=== PATIENT | male | born 1935 | race Caucasian/White ===

== ENCOUNTER → 2022-11-20 | Outpatient (CLI) | payer MEDICARE, BC ==
--- NOTE | 2022-11-21 12:59 | MR ---
EXAMINATION TYPE: MR foot RT wo con DATE OF EXAM: 11/20/2022 COMPARISON: NONE HISTORY: Swelling possible osteomyelitis TECHNIQUE: Multiplanar, multisequence noncontrast imaging of the right foot is submitted. FINDINGS: There is diffuse soft tissue edema with epidermal thickening. There is a soft tissue irregularity eleuterio ng the plantar surface of the foot correlate for ulceration. There is increased signal and edema within the plantar musculature which most likely is on the basis of neuropathic joint changes. Correlate clinically. No evidence of acute fracture. Moderate to severe hypertrophic arthropathy of the first MTP. Multiple hammertoe deformities are seen with mild arthropathy of the second through fifth digit MTP. DIP joints are limited in assessment du e to positioning suspect that at least mild arthropathy of all DIP joints. Visualized tendinous structures grossly intact. The sinus tarsi has a normal appearance. IMPRESSION: 1. Extensive soft tissue edema with findings compatible cellulitis and osteomyelitis base fifth metat arsal. I correlate for adjacent soft tissue ulcerations. 2. Diffuse increased signal through the plantar musculature most likely in the basis of the neuropath ic joint. Correlate clinically to exclude other etiologies.
== END | disposition home or self-care (01) ==
LOC: RADMRIMAIN 18:53
DX: E11.621 Type 2 diabetes mellitus with foot ulcer (principal); L97.512 Non-pressure chronic ulcer of other part of right foot with fat layer exposed; M86.8X7 Other osteomyelitis, ankle and foot; R60.0 Localized edema

== ENCOUNTER 2023-03-27 12:57 | Inpatient (IN) | payer MEDICARE, BC ==
--- NOTE | 2023-03-27 13:13 | ED ---
General Adult HPI - General Chief complaint: Altered Mental Status Stated complaint: Failure to Thrive,AMS Time Seen by Provider: 03/27/23 13:00 Source: EMS Mode of arrival: EMS Limitations: altered mental status, physical limitation - History of Present Illness Initial comments: Dictation was produced using [employer] dictation software. please excuse any grammatical, word or spelling errors. Chief Complaint: 87-year-old male presents to the ER for weakness and altered mental status History of Present Illness: Patient is an 87-year-old male presents emergency department for weakness and altered mental status. EMS was called by family. According to EMS patient had appeared to be slightly altered starting last night. This morning he was even worse, called EMS. EMS states that his blood sugars and 400 range. He is currently alert and oriented 11 at baseline he is much more improved than that. Patient has history of diabetes. His history of chronic wound to his right foot. EMS does not know what patient's CODE STATUS is. Unable to obtain ROS was secondary to mental status - Related Data Home Medications Medication Instructions Recorded Confirmed Apixaban [Eliquis] 5 mg PO Q12H 12/18/22 03/27/23 Atorvastatin [Lipitor] 20 mg PO HS 12/18/22 03/27/23 Finasteride [Proscar] 5 mg PO DAILY 12/18/22 03/27/23 Multivitamins, Thera [Multivitamin 1 tab PO DAILY 12/18/22 03/27/23 (formulary)] Tamsulosin [Flomax] 0.8 mg PO HS 12/18/22 03/27/23 Vit C/E/Zn/Coppr/Lutein/Zeaxan 1 cap PO DAILY 12/18/22 03/27/23 [Preservision Areds 2 Softgel] carvediloL [Coreg] 6.25 mg PO BID 12/18/22 03/27/23 metFORMIN HCL 1,000 mg PO BID 12/18/22 03/27/23 Collagenase [Santyl Ointment] 1 applic TOPICAL DAILY 03/27/23 03/27/23 Dakin's Solution 1 applic TOPICAL DAILY 03/27/23 03/27/23 Losartan [Cozaar] 25 mg PO DAILY 03/27/23 03/27/23 Spironolactone 25 mg PO DAILY 03/27/23 03/27/23 Previous Rx's Medication Instructions Recorded Furosemide [Lasix] 60 mg PO DAILY tab 12/25/22 Allergies Allergy/AdvReac Type Severity Reaction Status Date / Time No Known Allergies Allergy Verified 03/27/23 13:58 Review of Systems ROS Statement: Those systems with pertinent positive or pertinent negative responses have been documented in the HPI. ROS Other: All systems not noted in ROS Statement are negative. Past Medical History Past Medical History: Diabetes Mellitus, Hypertension Additional Past Medical History / Comment(s): Neuropathy, macular degeneration of the eyes, Patient says they had diverticulitis but that was resolved. History of Any Multi-Drug Resistant Organisms: None Reported Past Surgical History: Cardiac Valve Replacement Additional Past Surgical History / Comment(s): Cataract surgery Past Anesthesia/Blood Transfusion Reactions: No Reported Reaction Past Psychological History: No Psychological Hx Reported Smoking Status: Former smoker Past Alcohol Use History: None Reported Past Drug Use History: None Reported - Past Family History Father Family Medical History: Hyperlipidemia General Exam - General Exam Comments Initial Comments: PHYSICAL EXAM: General Impression: Adjacent, mouth breathing HEENT: Normocephalic atraumatic, extra-ocular movements intact, pupils equal and reactive to light bilaterally, dry mucous membranes. Cardiovascular: Heart regular rate and rhythm Chest: Able to complete full sentences, no retractions, no tachypnea Abdomen: abdomen soft, non-tender, non-distended, no organomegaly Musculoskeletal: Pulses present and equal in all extremities, no peripheral edema Motor: no focal deficits noted Neurological: CN II-XII grossly intact, intact sensation to painful stimuli of the bilateral upper extremities, decreased sensation to painful stable to the bilateral lower extremities Skin: Intact with no visualized rashes, chronic wound to the right lateral foot appears to be clean dry and intact Limitations: altered mental status, physical limitation Course Vital Signs 03/27/23 03/27/23 03/27/23 12:58 13:04 13:15 Temperature 100.6 F H Pulse Rate 109 H 112 H 107 H Respiratory 22 40 H Rate Blood Pressure 98/54 98/54 O2 Sat by Pulse 97 98 98 Oximetry 03/27/23 03/27/23 13:30 13:45 Temperature Pulse Rate 98 Respiratory Rate Blood Pressure 104/57 107/59 O2 Sat by Pulse 94 L Oximetry - Reevaluation(s) Reevaluation #1: 03/27/23 14:34 More history obtained from and family members. States that he had episode of weakness yesterday morning. EMS was called and however patient adamantly refused. This morning he seemed to be very lethargic according to . Other family arrived and called EMS. Patient's states that patient's been eating chocolate more often than not as of late. They did try to give him a dose of long-acting insulin after he checked his sugar this morning when he was about 400. This was prior to EMS arrival. requested patient be full code. EKG Findings - EKG Comments: EKG Findings:: My EKG interpretation: Ventricular rate 100, normal sinus rhythm, right bundle branch block. No AR prolongation, no QTC prolongation, no ST or T- wave changes noted. EKG compared to 12/19/2022 showing no changes. Overall, this EKG is unremarkable Medical Decision Making - Medical Decision Making Was pt. sent in by a medical professional or institution (, PA, FEDERAL JUDGE, urgent care, hospital, or intermediate...) When possible be specific @ -No Did you speak to anyone other than the patient for history (EMS, parent, family, police, friend...)? What history was obtained from this source @ -No Did you review nursing and triage notes (agree or disagree)? Why? @ -I reviewed and agree with nursing and triage notes Were old charts reviewed (outside hosp., previous admission, EMS record, old EKG, old radiological studies, urgent care reports/EKG's, intermediate records)? Report findings @ -No old charts were reviewed Differential Diagnosis (chest pain, altered mental status, abdominal pain women, abdominal pain men, vaginal bleeding, musculoskeletal, weakness, fever, dyspnea, syncope, headache, dizziness, GI bleed, back pain, seizure, CVA, palpatations, mental health)? @ -Differential Weakness: Hypoglycemia, shock, sepsis, hyponatremia, anemia, infection, DE, ETOH, adverse medicine reaction, overdose, stroke, this is not meant to be an all-inclusive list. EKG interpreted by me (3pts min.). @ -See above X-rays interpreted by me (1pt min.). @ -Chest x-ray shows atelectasis to the basilar areas CT interpreted by me (1pt min.). @ -CT brain shows no acute processes. U/S interpreted by me (1pt. min.). @ -None done What testing was considered but not performed or refused? (CT, X-rays, U/S, labs)? Why? @ -None What meds were considered but not given or refused? Why? @ -None Did you discuss the management of the patient with other professionals (professionals i.e. , PA, FEDERAL JUDGE, lab, RT, psych nurse, social sciences professor, small business banking officer, teacher, president and chief executive officer, case operator)? Give summary @ -Case discussed with hospitalist for admission Was smoking cessation discussed for >3mins.? @ -No Was critical care preformed (if so, how long)? @ -No Were there social determinants of health that impacted care today? How? (Homelessness, low income, unemployed, alcoholism, drug addiction, transporta tion, low edu. Level, literacy, decrease access to med. care, long-term, rehab)? @ -No Was there de-escalation of care discussed even if they declined (Discuss DNR or withdrawal of care, Hospice)? DNR status @ -No What co-morbidities impacted this encounter? (DM, HTN, Smoking, COPD, CAD, Cancer, CVA, ARF, Chemo, Hep., AIDS, mental health diagnosis, sleep apnea, morbid obesity)? @ -Diabetes Was patient admitted / discharged? Hospital course, mention meds given and route, prescriptions, significant lab abnormalities, going to OR and other pertinent info. @ -87-year-old diabetic male presents emergency department for generalized weakness. Patient had not been complaining of any chest pain or ACS-type symptoms. Vital signs upon arrival shows 100.6 low-grade temperature, respiratory rate of 40, O2 saturation 94% on room air. Blood pressure normal. Laboratory evaluation shows no leukocytosis. Hemoglobin stable. Coag is unremarkable. Metabolic panel shows sodium 129, creatinine 2.03 BUN of 58, lactic acidosis of 4.3, troponin is elevated 10.2. Unclear etiology. EKG is unremarkable. Patient did not complain of any ACS symptoms according patient and family members at the bedside. Patient given aspirin. Troponin may be the result of infection and acute kidney injury. Clinical presentation suspicious for sepsis. Patient has pending blood cultures started on antibiotics. We'll be admitting consultation to cardiology and infectious disease. Undiagnosed new problem with uncertain prognosis? @ -No Drug Therapy requiring intensive monitoring for toxicity (Heparin, Nitro, Insulin, Cardizem)? @ -No Were any procedures done? @ -No Diagnosis/symptom? Acute, or Chronic, or Acute on Chronic? Uncomplicated (without systemic symptoms) or Complicated (systemic symptoms)? @ -Troponin, acute kidney injury, altered mental status Side effects of treatment? @ -No Exacerbation, Progression, or Severe Exacerbation? @ -No Poses a threat to life or bodily function? How? (Chest pain, USA, DE, pneumonia, PE, COPD, DKA, ARF, appy, cholecystitis, CVA, Diverticulitis, Homicidal, Suicidal, threat to staff... and all critical care pts) @ -yes - Lab Data Result diagrams: 03/27/23 13:11 03/27/23 13:11 Lab Results 03/27/23 03/27/23 03/27/23 Range/Units 13:11 13:11 13:11 WBC 9.0 (3.8-10.6) k/uL RBC 3.79 L (4.30-5.90) m/uL Hgb 10.2 L (13.0-17.5) gm/dL Hct 30.3 L (39.0-53.0) % MCV 80.2 (80.0-100.0) fL MCH 27.0 (25.0-35.0) pg MCHC 33.6 (31.0-37.0) g/dL RDW 15.6 H (11.5-15.5) % Plt Count 125 L (150-450) k/uL MPV 9.7 Neutrophils % 96 % Lymphocytes % 2 % Monocytes % 2 % Eosinophils % 0 % Basophils % 0 % Neutrophils # 8.6 H (1.3-7.7) k/uL Lymphocytes # 0.2 L (1.0-4.8) k/uL Monocytes # 0.2 (0-1.0) k/uL Eosinophils # 0.0 (0-0.7) k/uL Basophils # 0.0 (0-0.2) k/uL PT 17.4 H (10.0-12.5) sec INR 1.7 H (<1.2) APTT 29.0 (22.0-30.0) sec Sodium (137-145) mmol/L Potassium (3.5-5.1) mmol/L Chloride (98-107) mmol/L Carbon Dioxide (22-30) mmol/L Anion Gap mmol/L BUN (9-20) mg/dL Creatinine (0.66-1.25) mg/dL Est GFR (CKD-EPI)AfAm (>60 ml/min/1.73 sqM) Est GFR (CKD-EPI)NonAf (>60 ml/min/1.73 sqM) Glucose (74-99) mg/dL Plasma Lactic Acid Geraldo (0.7-2.0) mmol/L Calcium (8.4-10.2) mg/dL Magnesium (1.6-2.3) mg/dL Total Bilirubin (0.2-1.3) mg/dL AST (17-59) U/L ALT (4-49) U/L Alkaline Phosphatase (38-126) U/L Troponin I (0.000-0.034) ng/mL Total Protein (6.3-8.2) g/dL Albumin (3.5-5.0) g/dL Urine Color Urine Appearance (Clear) Urine pH (5.0-8.0) Ur Specific [place] (1.001-1.035) Urine Protein (Negative) Urine Glucose (UA) (Negative) Urine Ketones (Negative) Urine Blood (Negative) Urine Nitrite (Negative) Urine Bilirubin (Negative) Urine Urobilinogen (<2.0) mg/dL Ur Leukocyte Esterase (Negative) Urine RBC (0-5) /hpf Urine WBC (0-5) /hpf Ur Squamous Epith Cells (0-4) /hpf Urine Bacteria (None) /hpf Hyaline Casts (0-2) /lpf Urine Mucus (None) /hpf Influenza Type A (PCR) Not Detected (Not Detectd) Influenza Type B (PCR) Not Detected (Not Detectd) RSV (PCR) Not Detected (Not Detectd) SARS-CoV-2 (PCR) Not Detected (Not Detectd) 03/27/23 03/27/23 03/27/23 Range/Units 13:11 13:11 13:11 WBC (3.8-10.6) k/uL RBC (4.30-5.90) m/uL Hgb (13.0-17.5) gm/dL Hct (39.0-53.0) % MCV (80.0-100.0) fL MCH (25.0-35.0) pg MCHC (31.0-37.0) g/dL RDW (11.5-15.5) % Plt Count (150-450) k/uL MPV Neutrophils % % Lymphocytes % % Monocytes % % Eosinophils % % Basophils % % Neutrophils # (1.3-7.7) k/uL Lymphocytes # (1.0-4.8) k/uL Monocytes # (0-1.0) k/uL Eosinophils # (0-0.7) k/uL Basophils # (0-0.2) k/uL PT (10.0-12.5) sec INR (<1.2) APTT (22.0-30.0) sec Sodium 129 L (137-145) mmol/L Potassium 5.1 (3.5-5.1) mmol/L Chloride 92 L (98-107) mmol/L Carbon Dioxide 20 L (22-30) mmol/L Anion Gap 17 mmol/L BUN 58 H (9-20) mg/dL Creatinine 2.03 H (0.66-1.25) mg/dL Est GFR (CKD-EPI)AfAm 33 (>60 ml/min/1.73 sqM) Est GFR (CKD-EPI)NonAf 28 (>60 ml/min/1.73 sqM) Glucose 343 H (74-99) mg/dL Plasma Lactic Acid Geraldo 4.3 H* (0.7-2.0) mmol/L Calcium 8.5 (8.4-10.2) mg/dL Magnesium 1.3 L (1.6-2.3) mg/dL Total Bilirubin 0.7 (0.2-1.3) mg/dL AST 60 H (17-59) U/L ALT 32 (4-49) U/L Alkaline Phosphatase 76 (38-126) U/L Troponin I (0.000-0.034) ng/mL Total Protein 6.6 (6.3-8.2) g/dL Albumin 3.3 L (3.5-5.0) g/dL Urine Color Yellow Urine Appearance Cloudy (Clear) Urine pH 5.0 (5.0-8.0) Ur Specific [place] 1.019 (1.001-1.035) Urine Protein Trace H (Negative) Urine Glucose (UA) Negative (Negative) Urine Ketones Negative (Negative) Urine Blood Negative (Negative) Urine Nitrite Negative (Negative) Urine Bilirubin Negative (Negative) Urine Urobilinogen <2.0 (<2.0) mg/dL Ur Leukocyte Esterase Negative (Negative) Urine RBC 2 (0-5) /hpf Urine WBC 2 (0-5) /hpf Ur Squamous Epith Cells 2 (0-4) /hpf Urine Bacteria Rare H (None) /hpf Hyaline Casts 14 H (0-2) /lpf Urine Mucus Rare H (None) /hpf Influenza Type A (PCR) (Not Detectd) Influenza Type B (PCR) (Not Detectd) RSV (PCR) (Not Detectd) SARS-CoV-2 (PCR) (Not Detectd) 03/27/23 Range/Units 13:11 WBC (3.8-10.6) k/uL RBC (4.30-5.90) m/uL Hgb (13.0-17.5) gm/dL Hct (39.0-53.0) % MCV (80.0-100.0) fL MCH (25.0-35.0) pg MCHC (31.0-37.0) g/dL RDW (11.5-15.5) % Plt Count (150-450) k/uL MPV Neutrophils % % Lymphocytes % % Monocytes % % Eosinophils % % Basophils % % Neutrophils # (1.3-7.7) k/uL Lymphocytes # (1.0-4.8) k/uL Monocytes # (0-1.0) k/uL Eosinophils # (0-0.7) k/uL Basophils # (0-0.2) k/uL PT (10.0-12.5) sec INR (<1.2) APTT (22.0-30.0) sec Sodium (137-145) mmol/L Potassium (3.5-5.1) mmol/L Chloride (98-107) mmol/L Carbon Dioxide (22-30) mmol/L Anion Gap mmol/L BUN (9-20) mg/dL Creatinine (0.66-1.25) mg/dL Est GFR (CKD-EPI)AfAm (>60 ml/min/1.73 sqM) Est GFR (CKD-EPI)NonAf (>60 ml/min/1.73 sqM) Glucose (74-99) mg/dL Plasma Lactic Acid Geraldo (0.7-2.0) mmol/L Calcium (8.4-10.2) mg/dL Magnesium (1.6-2.3) mg/dL Total Bilirubin (0.2-1.3) mg/dL AST (17-59) U/L ALT (4-49) U/L Alkaline Phosphatase (38-126) U/L Troponin I 10.200 H* (0.000-0.034) ng/mL Total Protein (6.3-8.2) g/dL Albumin (3.5-5.0) g/dL Urine Color Urine Appearance (Clear) Urine pH (5.0-8.0) Ur Specific [place] (1.001-1.035) Urine Protein (Negative) Urine Glucose (UA) (Negative) Urine Ketones (Negative) Urine Blood (Negative) Urine Nitrite (Negative) Urine Bilirubin (Negative) Urine Urobilinogen (<2.0) mg/dL Ur Leukocyte Esterase (Negative) Urine RBC (0-5) /hpf Urine WBC (0-5) /hpf Ur Squamous Epith Cells (0-4) /hpf Urine Bacteria (None) /hpf Hyaline Casts (0-2) /lpf Urine Mucus (None) /hpf Influenza Type A (PCR) (Not Detectd) Influenza Type B (PCR) (Not Detectd) RSV (PCR) (Not Detectd) SARS-CoV-2 (PCR) (Not Detectd) Disposition Clinical Impression: SIRS (systemic inflammatory response syndrome), Elevated troponin Disposition: [facility] Condition: Serious Referrals: Jesus Shah MD [Primary Care Provider] - 1-2 days Decision Time: 15:08
[2023-03-27] MEDS ORDERED: SODIUM CHLORIDE 0.9% 500 ML 500 ML IV STA (13:25)
[2023-03-27] MEDS ORDERED: ACETAMINOPHEN TAB 500 MG TAB PO STA (13:25)
[2023-03-27 13:43] LABS: Basophils % (A) 0 %; Eosinophils % (A) 0 %; HCT 30.3 % (39.0-53.0); HGB 10.2 gm/dL (13.0-17.5); INR 1.7 (<1.2); Lymphocytes # (A) 0.2 k/uL (1.0-4.8); Lymphocytes % (A) 2 %; MCHC 33.6 g/dL (31.0-37.0); MCV 80.2 fL (80.0-100.0); Mean Platelet Volume 9.7; Monocytes # (A) 0.2 k/uL (0-1.0); Monocytes % (A) 2 %; Neutrophils # (A) 8.6 k/uL (1.3-7.7); Neutrophils % (A) 96 %; Platelet Count 125 k/uL (150-450); Prothrombin Time 17.4 sec (10.0-12.5); RBC 3.79 m/uL (4.30-5.90); RDW 15.6 % (11.5-15.5)
--- NOTE | 2023-03-27 13:55 | XR ---
EXAMINATION TYPE: XR chest 1V portable DATE OF EXAM: 03/27/2023 Comparison: 12/19/2022 Clinical History: 87-year-old male confusion, fall, altered mental status Findings: Low lung volumes and crowded vascular markings. Patchy retrocardiac and right basilar opacities. Hear t is mildly enlarged. Endovascular aortic valve replacement. Atherosclerotic arch calcifications. Impression: Prominent hypoventilatory changes. Some patchy bibasilar densities likely represent atelectasis rathe r than infiltrates.
[2023-03-27] MEDS ORDERED: ACETAMINOPHEN IV (For NPO) 1,000 MG in EMPTY BAG 1 BAG IVPB STA (13:56)
[2023-03-27 14:03] LABS: Appearance,Urine Cloudy (Clear); Bacteria,Urine Rare /hpf; Bilirubin,Urine Negative (Negative); Blood,Urine Negative (Negative); Color,Urine Yellow; Glucose,Urine (UA) Negative (Negative); Hyaline Casts,Urine 14 /lpf (0-2); Ketones,Urine Negative (Negative); Leukocyte Esterase,Urine Negative (Negative); Mucus,Urine Rare /hpf; Nitrite,Urine Negative (Negative); Protein,Urine Trace (Negative); RBC,Urine 2 /hpf (0-5); Specific Gravity,Urine 1.019 (1.001-1.035); Squamous Epithelial Cell,Urine 2 /hpf (0-4); Urobilinogen,Urine <2.0 mg/dL (<2.0); WBC,Urine 2 /hpf (0-5)
[2023-03-27 14:13] LABS: AST 60 U/L (17-59); African American GFR (CKD) 33 (>60 ml/min/1.73 sqM); Albumin 3.3 g/dL (3.5-5.0); Alkaline Phosphatase 76 U/L (38-126); Anion Gap 17 mmol/L; Blood Urea Nitrogen 58 mg/dL (9-20); Calcium 8.5 mg/dL (8.4-10.2); Carbon Dioxide 20 mmol/L (22-30); Chloride 92 mmol/L (98-107); Glucose 343 mg/dL (74-99); Magnesium 1.3 mg/dL (1.6-2.3); Non-African American GFR(CKD) 28 (>60 ml/min/1.73 sqM); Potassium 5.1 mmol/L (3.5-5.1); Sodium 129 mmol/L (137-145); Total Bilirubin 0.7 mg/dL (0.2-1.3); Total Protein 6.6 g/dL (6.3-8.2)
[2023-03-27 14:18] LABS: ALT 32 U/L (4-49)
[2023-03-27] MEDS ORDERED: HEPARIN SODIUM 1,000 UN/ML (10ML VL) IV PRN (14:38)
[2023-03-27] MEDS ORDERED: HEPARIN SODIUM 1,000 UN/ML (10ML VL) IV ONE (14:38)
[2023-03-27] MEDS ORDERED: HEPARIN SOD,PORK IN 0.45% NACL 25,000 UNIT in 0.45% NACL 1 250ML.BAG IV SCH (14:45)
--- NOTE | 2023-03-27 14:59 | CT ---
EXAMINATION TYPE: CT brain wo con DATE OF EXAM: 03/27/2023 COMPARISON: None HISTORY: AMS. Fall. CT DLP: 1152.4 mGycm Automated exposure control for dose reduction was used. FINDINGS: The ventricles, basal cisterns and sulci over the convexities are moderately to markedly enlarged con sistent with moderate to marked atrophy but not inappropriate for the patient's age. There is moderate decreased density in the periventricular white matter consistent with chronic ische eleazar white matter demyelination. There is a small remote lacunar infarct in left basal ganglia. There is no mass effect or shift of midline structures. There is no acute intra or extra-axial hemorrhage. The posterior fossa including the brainstem, fourth ventricle and cerebellar pontine angles are gross ly normal. Intraorbital contents appear normal and symmetric. The calvarium is intact and the mastoid air cells and paranasal sinuses are well aerated. IMPRESSION: 1. Chronic ischemic changes. 2. No acute bleed or mass effect. 3. Moderate to marked age-appropriate atrophy. IMPRESSION:
[2023-03-27] MEDS ORDERED: ACETAMINOPHEN TAB 325 MG TAB PO PRN (15:02)
[2023-03-27] MEDS ORDERED: NALOXONE 0.4 MG/ML 1 ML VIAL IV PRN (15:02)
[2023-03-27] MEDS ORDERED: Magnesium Replacement Protocol 1 EACH MISC MISCELLANE PRN (15:22)
[2023-03-27] MEDS ORDERED: PIPERACILLIN-TAZOBACTAM 3.375 GM in SODIUM CHLORIDE 0.9% 100 ML IVPB SCH (16:00)
[2023-03-27] MEDS: SODIUM CHLORIDE 0.9% 1,000 ML IV SCH ×2 (18:07→22:26)
[2023-03-27] MEDS: MAGNESIUM SULFATE-D5W PMX 1 GM in DEXTROSE/WATER 1 100ML.BAG IVPB SCH ×2 (18:07→19:27)
[2023-03-27] MEDS ORDERED: SODIUM CHLORIDE 0.9% 1,000 ML IV ONE (18:45)
[2023-03-27] MEDS ORDERED: ACETAMINOPHEN IV (For NPO) 1,000 MG in EMPTY BAG 1 BAG IVPB PRN (19:05)
[2023-03-27 19:32] VITALS: TEMP 99.5
[2023-03-27 20:38] VITALS: BP 55/41; PULSE 38; RESP 5
[2023-03-27] MEDS ORDERED: TAMSULOSIN 0.4 MG CAP.ER.24H PO SCH (21:00)
[2023-03-27] MEDS ORDERED: ATORVASTATIN 20 MG TAB PO SCH (21:00)
--- NOTE | 2023-03-27 21:12 | P.CNPUL ---
History of Present Illness Consult date: 03/27/23 Chief complaint: Hypotension, altered mentation, acute CT History of present illness: This is a 87-year-old male patient was seen in the emergency department for hypotension. I was asked to evaluate this patient due to a drop in blood pressure that occurred in the ED. He has a very complex history of cardiac disease. He has undergone a previous percutaneous aortic valve replacement and he has history of chronic A. fib, peripheral vascular disease, diabetes mellitus, diabetic neuropathy and a chronic ulcer in the right foot and was essentially nonhealing complicated by development of osteomyelitis and infection caused by staph aureus and enterococcus. The patient was hospitalized regarding the right foot ulcer, similar to his back in November 2022 and at that time he was evaluated by vascular surgery and infectious disease and the patient was found to have osteomyelitis of the fifth metatarsal on an MRI of the right foot. The patient underwent surgical debridement of the right lateral foot and the wound VAC was placed and ultimately was discharged home on IV antibiotics with a PICC line and he completed a total of 6 weeks of IV Unasyn. He had difficulties with mobility due to neuropathy and foot ulcer. He has hypertension hyperlipidemia and BPH as other comorbid conditions. Note of any coronary artery disease. During this current hospitalization, he comes in for generalized weakness, diarrhea, dehydration altered mentation. EMS brought the patient into the hospital for further workup. In the emergency, he was found to be alert. Confused and OA1. No focal neurological deficits. The patient was further found to be febrile with a T-max of 100.6. White cell count was at 9 with a hemoglobin of 10.2. Sodium level is 129, BUN was 58 with a creatinine of 2.03 consistent with an acute kidney injury. Blood sugars were elevated at 343. The patient had an INR of 1.7 with a PT of 17.4 and a PTT of 29. UA was negative for infection. Lactic acid level was at 4.3 and the troponins were also positive with initial troponin came back at 10.2 and a subsequent troponin came back at 18 and then 24. Cardiology was made aware and the patient was started on IV heparin. During the course of his emergency stay, he encountered hypotension. He was given a liter of IV fluids. A second liter was ordered and by the time on arrival to the emergency, the patient's blood pressure was already improving. He was not using any pressors. Most recent lactic acid level is at 6.0. He virus screen was negative including influenza, Covid 19 and RSV. Chest x-ray was reviewed and the patient has smaller lung volumes with atelectatic changes in lung bases bilaterally CAT scan of the brain showed chronic ischemic changes in the EKG was consistent with atrial fibrillation with a heart rate in the range of 100-110. The patient also had a bundle branch block pattern on his EKG. He was on room air oxygen. Very poor historian. Right lower extremity wound had a clean healthy base and Sentyl was being applied to the area. PICC line has been removed. No ongoing antibiotic treatment. Abdomen is nontender. Review of Systems Constitutional: Reports chronic pain, Reports daytime sleepiness, Reports fatigue, Reports lethargy, Reports poor appetite, Reports weakness Eyes: bilateral decreased vision, denies as per HPI, denies blurred vision, timo es bulging eye, denies diplopia, denies discharge, denies dry eye, denies irritation, denies itching, denies pain, denies photophobia, denies loss of peripheral vision, denies loss of vision, denies tunnel vision/blind spots Ears, nose, mouth and throat: Reports as per HPI Cardiovascular: Reports decreased exercise tolerance, Reports irregular heart beat, Denies dyspnea on exertion Respiratory: Reports dyspnea Gastrointestinal: Reports diarrhea Genitourinary: Reports as per HPI Musculoskeletal: Reports gait dysfunction, Reports leg numbness/tingling, Reports muscle weakness Musculoskeletal: absent: ankle pain, ankle stiffness, ankle swelling, as per HPI, elbow pain, elbow stiffness, elbow swelling, foot pain, foot stiffness, foot swelling, hand pain, hand stiffness, hand swelling, hip pain, hip stiffness, hip swelling, knee pain, knee stiffness, knee swelling, shoulder pain, shoulder stiffness, shoulder swelling, wrist pain, wrist stiffness, wrist swelling Integumentary: Reports foot/leg ulcers, Reports wounds Neurological: Reports as per HPI, Reports change in mentation, Reports confusion Psychiatric: Reports as per HPI Endocrine: Reports as per HPI, Reports fatigue Hematologic/Lymphatic: Reports as per HPI Allergic/Immunologic: Reports as per HPI Past Medical History Past Medical History: Atrial Fibrillation, Coronary Artery Disease (CAD), Heart Failure, Diabetes Mellitus, Hypertension, Musculoskeletal Disorder, Osteoarthritis (OA), Prostate Disorder, Skin Disorder (Diabetic foot ulcer, osteomyelitis of the right foot/fifth metatarsal), Vascular Disorder Additional Past Medical History / Comment(s): Neuropathy, macular degeneration of the eyes, Patient says they had diverticulitis but that was resolved. Previous history of percutaneous aortic valve replacement/TAVR History of Any Multi-Drug Resistant Organisms: None Reported Past Surgical History: Cardiac Valve Replacement (tAVR) Additional Past Surgical History / Comment(s): Cataract surgery Past Anesthesia/Blood Transfusion Reactions: No Reported Reaction Past Psychological History: No Psychological Hx Reported Smoking Status: Former smoker Past Alcohol Use History: None Reported Past Drug Use History: None Reported - Past Family History Father Family Medical History: Hyperlipidemia Medications and Allergies Home Medications Medication Instructions Recorded Confirmed Type Apixaban [Eliquis] 5 mg PO Q12H 12/18/22 03/27/23 History Atorvastatin [Lipitor] 20 mg PO HS 12/18/22 03/27/23 History Finasteride [Proscar] 5 mg PO DAILY 12/18/22 03/27/23 History Multivitamins, Thera [Multivitamin 1 tab PO DAILY 12/18/22 03/27/23 History (formulary)] Tamsulosin [Flomax] 0.8 mg PO HS 12/18/22 03/27/23 History Vit C/E/Zn/Coppr/Lutein/Zeaxan 1 cap PO DAILY 12/18/22 03/27/23 History [Preservision Areds 2 Softgel] carvediloL [Coreg] 6.25 mg PO BID 12/18/22 03/27/23 History metFORMIN HCL 1,000 mg PO BID 12/18/22 03/27/23 History Furosemide [Lasix] 60 mg PO DAILY tab 12/25/22 03/27/23 Rx Collagenase [Santyl Ointment] 1 applic TOPICAL DAILY 03/27/23 03/27/23 History Dakin's Solution 1 applic TOPICAL DAILY 03/27/23 03/27/23 History Losartan [Cozaar] 25 mg PO DAILY 03/27/23 03/27/23 History Spironolactone 25 mg PO DAILY 03/27/23 03/27/23 History Allergies Allergy/AdvReac Type Severity Reaction Status Date / Time No Known Allergies Allergy Verified 03/27/23 13:58 Physical Exam Vitals: Vital Signs Temp Pulse Resp BP Pulse Ox 03/27/23 20:35 38 L 5 L 55/41 86 L 03/27/23 20:30 74 21 104/92 91 L 03/27/23 20:25 93 26 H 104/92 93 L 03/27/23 20:20 103 H 31 H 104/92 94 L 03/27/23 20:15 102 H 35 H 116/96 95 03/27/23 20:10 106 H 33 H 116/96 95 03/27/23 20:05 121 H 37 H 116/96 94 L 03/27/23 20:00 113 H 39 H 92/65 95 03/27/23 19:40 112 H 36 H 96/57 96 03/27/23 19:00 99.5 F 104 H 39 H 98/54 95 03/27/23 18:40 86 49 H 101/47 94 L 03/27/23 18:20 106 H 39 H 106/24 94 L 03/27/23 18:00 98 47 H 97/53 97 03/27/23 17:40 96 45 H 81/50 100 03/27/23 17:20 91 48 H 115/51 100 03/27/23 17:00 106 H 42 H 72/36 99 03/27/23 16:40 100 33 H 72/46 100 03/27/23 16:20 90 34 H 95 03/27/23 16:00 102 H 33 H 109/46 89 L 03/27/23 15:40 87 44 H 76/53 03/27/23 15:20 105 H 49 H 94/60 03/27/23 15:00 120 H 37 H 90 L 03/27/23 14:40 111/54 03/27/23 14:20 100 40 H 116/70 03/27/23 14:00 116 H 115/72 95 03/27/23 13:45 98 107/59 94 L 03/27/23 13:30 104/57 03/27/23 13:15 107 H 98/54 98 03/27/23 13:04 112 H 40 H 98 03/27/23 12:58 100.6 F H 109 H 22 98/54 97 Intake and Output 03/27/23 03/27/23 03/27/23 06:59 14:59 22:59 Other: Weight 99.79 kg General: Nontoxic, no distress and appears stated age, confused, currently on room air oxygen. No apparent distress distress. Derm: Skin warm and dry, normal coloration for ethnicity. The patient has a chronic nonhealing ulcer in the lateral aspect of the right foot, the base of the foot is clean without any purulent material. No active drainage from the wound surface Head: Atraumatic, normocephalic and symmetric. Eyes: EOMs intact, no lid lag, and anicteric sclera Mouth: no lip lesions, mucus membranes are dry Cardiovascular: Irregular rhythm consistent with atrial fibrillation, irregular S1S2, systolic murmur, positive posterior tibial pulses bilaterally Lungs: Respirations even, regular, and unlabored on room air. Lungs diminished. No rhonchi, no rales, no wheezing, and no accessory muscle usage. Abdominal: Obese abdomen soft, nontender to palpation, no guarding, no appreciable organomegaly Ext: : No gross muscle atrophy, 1+ bilateral lower extremity pitting edema, no contractures. Dressing is in place to the right foot ulcer Neuro: Lethargic, sleepy, confused, alert and oriented 1, face symmetrical and CN II-XII grossly intact with no noted focal neuro deficits Psych: Unable to obtain Results - Laboratory Findings CBC and BMP: 03/27/23 13:11 03/27/23 13:11 PT/INR, D-dimer PT 17.4 sec (10.0-12.5) H 03/27/23 13:11 INR 1.7 (<1.2) H 03/27/23 13:11 Abnormal lab findings: Abnormal Labs 03/27/23 03/27/23 03/27/23 13:11 13:11 13:11 RBC 3.79 L Hgb 10.2 L Hct 30.3 L RDW 15.6 H Plt Count 125 L Neutrophils # 8.6 H Lymphocytes # 0.2 L PT 17.4 H INR 1.7 H Sodium Chloride Carbon Dioxide BUN Creatinine Glucose Plasma Lactic Acid Geraldo Ionized Calcium Yonatan Magnesium AST Troponin I Albumin Urine Protein Trace H Urine Bacteria Rare H Hyaline Casts 14 H Urine Mucus Rare H 03/27/23 03/27/23 03/27/23 13:11 13:11 13:11 RBC Hgb Hct RDW Plt Count Neutrophils # Lymphocytes # PT INR Sodium 129 L Chloride 92 L Carbon Dioxide 20 L BUN 58 H Creatinine 2.03 H Glucose 343 H Plasma Lactic Acid Geraldo 4.3 H* Ionized Calcium Yonatan Magnesium 1.3 L AST 60 H Troponin I 10.200 H* Albumin 3.3 L Urine Protein Urine Bacteria Hyaline Casts Urine Mucus 03/27/23 03/27/23 03/27/23 14:09 16:13 16:20 RBC Hgb Hct RDW Plt Count Neutrophils # Lymphocytes # PT INR Sodium Chloride Carbon Dioxide BUN Creatinine Glucose Plasma Lactic Acid Geraldo 5.8 H* Ionized Calcium Yonatan 4.4 L Magnesium AST Troponin I 18.300 H* Albumin Urine Protein Urine Bacteria Hyaline Casts Urine Mucus 03/27/23 03/27/23 19:21 19:21 RBC Hgb Hct RDW Plt Count Neutrophils # Lymphocytes # PT INR Sodium Chloride Carbon Dioxide BUN Creatinine Glucose Plasma Lactic Acid Geraldo 6.0 H* Ionized Calcium Yonatan Magnesium AST Troponin I 24.200 H* Albumin Urine Protein Urine Bacteria Hyaline Casts Urine Mucus Assessment and Plan Plan: Acute non-ST segment elevation myocardial infarction with progressive rise in the troponin, peaked at 24. The patient is free of any chest pain. EKG showing A. fib with a RBB pattern. The patient is currently on IV heparin. Acute hypotension, responded to IV fluids. Rule out intravascular volume depletion/dehydration probably due to diminished oral intake and diarrhea contributing to intravascular depletion Acute kidney injury, likely secondary to above Congestion heart failure, based on the physical ejection fraction is not known aortic valve replacement/TAVR Chronic A. 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 The patient is undergone surgical debridement and culture showed MSSA and enterococcus and the patient completed a total of 6 week course of IV Unasyn outpatient basis. The wounds is inspected and the base of the wound is clean and there is no active purulent drainage at this point. Diarrhea, rule out C. diff colitis. No active antibiotic intake and this point in time and the patient completed 6 weeks course of IV Unasyn Diabetes mellitus with diabetic neuropathy Peripheral vascular disease Hypertension Hyperlipidemia BPH Plan Patient was given a total of 2 L of IV fluids. We'll continue maintenance of 130 mL an hour normal saline Continue IV heparin Echocardiogram to evaluate LV function Cardiology to evaluate acute non-ST segment elevation myocardial infarction No need for antibiotic coverage at this point in time Check stool for C. diff Obtain blood cultures Check pro calcitonin level Oxygenation is stable and the patient is currently on room air oxygen Wound care and the patient would have the Dakin's solution in addition to santyl DNR/DNI CODE STATUS Resume all medications Prognosis poor. We'll continue to follow
--- NOTE | 2023-03-27 23:17 | P.CONS ---
History of Present Illness - Reason for Consult Consult date: 03/27/23 SIRS Requesting physician: Julien Patino - Chief Complaint Weakness and mental status changes x 1 day - History of Present Illness Patient is a 87-year-old male with a past medical history of pain for diabetes mellitus hypertension, patient did have admission to the hospital in November 2022 with the right fifth toe osteomyelitis and this patient was status post amputation of the right fifth toe culture positive for MSSA and Enterococcus faecalis for the patient has completed course of IV and oral antibiotic therapy patient currently following at [facility] for the right foot wound currently being treated with the collagen therapy patient has been brought into the hospital this afternoon for evaluation of weakness and mental status changes apparently the patient fell 1 week and did have a fall yesterday EMS came and to get the patient up however the patient refused to go to the ED ER yesterday was noticed to be more weak and less responsive for the patient was brought into the hospital on arrival to the ER patient did have a fever 100.6 degrees for right patient was tachycardic tachypneic and hypoxic patient did have elevated lactic acid of 5.8 white count is 9.0 did have elevated urinary creatinine AST is mildly elevated also have elevated troponin urine has been negative influenza RSV and COVID testing was negative patient did have a chest x-ray prominent hypoventilatory changes some patchy bibasilar densities likely present atelectasis rather than infiltrate patient was admitted to the hospital infectious disease was consulted for further management most information has been obtained from review the chart talking to the family as the patient could not provide any history Review of Systems Positive point and negatives has been mentioned in the HPI, complete review of systems was performed and all other systems are negative Past Medical History Past Medical History: Diabetes Mellitus, Hypertension Additional Past Medical History / Comment(s): Neuropathy, macular degeneration of the eyes, Patient says they had diverticulitis but that was resolved. History of Any Multi-Drug Resistant Organisms: None Reported Past Surgical History: Cardiac Valve Replacement Additional Past Surgical History / Comment(s): Cataract surgery Past Anesthesia/Blood Transfusion Reactions: No Reported Reaction Past Psychological History: No Psychological Hx Reported Smoking Status: Former smoker Past Alcohol Use History: None Reported Past Drug Use History: None Reported - Past Family History Father Family Medical History: Hyperlipidemia Medications and Allergies Home Medications Medication Instructions Recorded Confirmed Type Apixaban [Eliquis] 5 mg PO Q12H 12/18/22 03/27/23 History Atorvastatin [Lipitor] 20 mg PO HS 12/18/22 03/27/23 History Finasteride [Proscar] 5 mg PO DAILY 12/18/22 03/27/23 History Multivitamins, Thera [Multivitamin 1 tab PO DAILY 12/18/22 03/27/23 History (formulary)] Tamsulosin [Flomax] 0.8 mg PO HS 12/18/22 03/27/23 History Vit C/E/Zn/Coppr/Lutein/Zeaxan 1 cap PO DAILY 12/18/22 03/27/23 History [Preservision Areds 2 Softgel] carvediloL [Coreg] 6.25 mg PO BID 12/18/22 03/27/23 History metFORMIN HCL 1,000 mg PO BID 12/18/22 03/27/23 History Furosemide [Lasix] 60 mg PO DAILY tab 12/25/22 03/27/23 Rx Collagenase [Santyl Ointment] 1 applic TOPICAL DAILY 03/27/23 03/27/23 History Dakin's Solution 1 applic TOPICAL DAILY 03/27/23 03/27/23 History Losartan [Cozaar] 25 mg PO DAILY 03/27/23 03/27/23 History Spironolactone 25 mg PO DAILY 03/27/23 03/27/23 History Allergies Allergy/AdvReac Type Severity Reaction Status Date / Time No Known Allergies Allergy Verified 03/27/23 13:58 Physical Exam Vitals: Vital Signs Temp Pulse Resp BP Pulse Ox 03/27/23 16:40 100 33 H 72/46 100 03/27/23 16:20 90 34 H 95 03/27/23 16:00 102 H 33 H 109/46 89 L 03/27/23 15:40 87 44 H 76/53 03/27/23 15:20 105 H 49 H 94/60 03/27/23 15:00 120 H 37 H 90 L 03/27/23 14:40 111/54 03/27/23 14:20 100 40 H 116/70 03/27/23 14:00 116 H 115/72 95 03/27/23 13:45 98 107/59 94 L 03/27/23 13:30 104/57 03/27/23 13:15 107 H 98/54 98 12/28/23 13:04 112 H 40 H 98 03/27/23 12:58 100.6 F H 109 H 22 98/54 97 Intake and Output 03/27/23 03/27/23 03/27/23 06:59 14:59 22:59 Other: Weight 99.79 kg GENERAL DESCRIPTION: Elderly male lying in bed, no distress. No tachypnea or accessory muscle of respiration use. HEENT: Shows Pallor , no scleral icterus. Oral mucous membrane is dry. No pharyngeal erythema or thrush NECK: Trachea central, no thyromegaly. LUNGS: Unlabored breathing. Coarse breath sounds bilaterally HEART: S1, S2, regular rate and rhythm. ABDOMEN: Soft, no tenderness , EXTREMITIES: Right foot wound with no slough tissue no surrounding swelling redness or any drainage SKIN: No rash, no masses palpable. NEUROLOGICAL: The patient is lethargic but arousable orientation cannot be determined Results CBC & Chem 7: 03/27/23 13:11 03/27/23 13:11 Labs: Abnormal Lab Results - Last 24 Hours (Table) 03/27/23 03/27/23 03/27/23 Range/Units 13:11 13:11 13:11 RBC 3.79 L (4.30-5.90) m/uL Hgb 10.2 L (13.0-17.5) gm/dL Hct 30.3 L (39.0-53.0) % RDW 15.6 H (11.5-15.5) % Plt Count 125 L (150-450) k/uL Neutrophils # 8.6 H (1.3-7.7) k/uL Lymphocytes # 0.2 L (1.0-4.8) k/uL PT 17.4 H (10.0-12.5) sec INR 1.7 H (<1.2) Sodium (137-145) mmol/L Chloride (98-107) mmol/L Carbon Dioxide (22-30) mmol/L BUN (9-20) mg/dL Creatinine (0.66-1.25) mg/dL Glucose (74-99) mg/dL Plasma Lactic Acid Geraldo (0.7-2.0) mmol/L Ionized Calcium Yonatan (4.5-5.3) mg/dL Magnesium (1.6-2.3) mg/dL AST (17-59) U/L Troponin I (0.000-0.034) ng/mL Albumin (3.5-5.0) g/dL Urine Protein Trace H (Negative) Urine Bacteria Rare H (None) /hpf Hyaline Casts 14 H (0-2) /lpf Urine Mucus Rare H (None) /hpf 03/27/23 03/27/23 03/27/23 Range/Units 13:11 13:11 13:11 RBC (4.30-5.90) m/uL Hgb (13.0-17.5) gm/dL Hct (39.0-53.0) % RDW (11.5-15.5) % Plt Count (150-450) k/uL Neutrophils # (1.3-7.7) k/uL Lymphocytes # (1.0-4.8) k/uL PT (10.0-12.5) sec INR (<1.2) Sodium 129 L (137-145) mmol/L Chloride 92 L (98-107) mmol/L Carbon Dioxide 20 L (22-30) mmol/L BUN 58 H (9-20) mg/dL Creatinine 2.03 H (0.66-1.25) mg/dL Glucose 343 H (74-99) mg/dL Plasma Lactic Acid Geraldo 4.3 H* (0.7-2.0) mmol/L Ionized Calcium Yonatan (4.5-5.3) mg/dL Magnesium 1.3 L (1.6-2.3) mg/dL AST 60 H (17-59) U/L Troponin I 10.200 H* (0.000-0.034) ng/mL Albumin 3.3 L (3.5-5.0) g/dL Urine Protein (Negative) Urine Bacteria (None) /hpf Hyaline Casts (0-2) /lpf Urine Mucus (None) /hpf 03/27/23 03/27/23 03/27/23 Range/Units 14:09 16:13 16:20 RBC (4.30-5.90) m/uL Hgb (13.0-17.5) gm/dL Hct (39.0-53.0) % RDW (11.5-15.5) % Plt Count (150-450) k/uL Neutrophils # (1.3-7.7) k/uL Lymphocytes # (1.0-4.8) k/uL PT (10.0-12.5) sec INR (<1.2) Sodium (137-145) mmol/L Chloride (98-107) mmol/L Carbon Dioxide (22-30) mmol/L BUN (9-20) mg/dL Creatinine (0.66-1.25) mg/dL Glucose (74-99) mg/dL Plasma Lactic Acid Geraldo 5.8 H* (0.7-2.0) mmol/L Ionized Calcium Yonatan 4.4 L (4.5-5.3) mg/dL Magnesium (1.6-2.3) mg/dL AST (17-59) U/L Troponin I 18.300 H* (0.000-0.034) ng/mL Albumin (3.5-5.0) g/dL Urine Protein (Negative) Urine Bacteria (None) /hpf Hyaline Casts (0-2) /lpf Urine Mucus (None) /hpf Assessment and Plan (1) SIRS (systemic inflammatory response syndrome) Status: Acute Code(s): R65.10 - SIRS OF NON-INFECTIOUS ORIGIN W/O ACUTE ORGAN DYSFUNCTION SNOMED Code(s): 244969523 (2) Diarrhea Status: Acute Code(s): R19.7 - DIARRHEA, UNSPECIFIED SNOMED Code(s): 30724416 (3) Right foot ulcer Status: Acute Code(s): L97.519 - NON-PRS CHRONIC ULCER OTH PRT RIGHT FOOT W UNSP SEVERITY SNOMED Code(s): 887046349 Plan: 1-patient presented to hospital with generalized weakness patient noticed to have a low-grade fever however did have a normal white count did have elevated lactic acid and elevated troponin concerning for [place] for the patient is currently on heparin as well as possible infectious etiology could be compounded for pneumonia less likely would not have excluded and the patient is having diarrhea in the outpatient setting though no recent antibiotics exposure, C. difficile will need to rule out 2-we will check a stool for C. difficile and did have positive 3-we will also check a CRP and a procalcitonin level 4-continue with empiric Zosyn while waiting for the workup to be completed Multiple family members at the bedside questions were answered We will follow on clinical condition and cultures to further adjust medication if needed Thank you for this consultation we will follow the patient along with you Dictation was produced using [employer] dictation software. please excuse any grammatical, word or spelling errors. Time with Patient: Greater than 30
[2023-03-28] MEDS ORDERED: FINASTERIDE 5 MG TAB PO SCH (09:00)
--- NOTE | 2023-03-28 15:17 | P.HPIM ---
History of Present Illness H&P Date: 03/28/23 Patient was evaluated in the ER by attending Dr. Degroot as well as pulmonary kidney puller while in the ER and was not evaluated by attending physician Patient was admitted from the ER for increased weakness and altered mental status and EMS was called by family. Patient had uncontrolled blood sugars and elevated blood sugars on admission and was also found to have a chronic wound was right foot. Family was contacted and patient CODE STATUS addressed per ER documentation wanted full code. Pulmonary kidney puller was consulted as patient is severely hypotensive and more unresponsive and clinically declining. Antibiotics with infectious disease and pulmonary kidney puller on consult. Labs reviewed and patient had lactic acid of 4.3 and troponins were positive with initial troponin being 10.2 and subsequent troponins came back as 18 and 24 with cardiology placed on consult and placed on IV heparin and started developing hypotension was given multiple boluses and continued to be hypotensive. Procalcitonin was 2.25. Patient does follow with Dr. Reyna in the outpatient setting with a past medical history of atrial fibrillation, coronary artery disease, heart failure, diabetes mellitus, hypertension, musculoskeletal disorder, also arthritis, prostate disorder, poorly controlled diabetes, osteomyelitis of the right foot along with vascular disorder. Patient was known to have a cardiac valve replacement with TAVR. Patient was admitted to the hospital with acute NSTEMI dehydration, Acute kidney injury, CHF exacerbation with a chronic nonhealing diabetic ulcer with osteomyelitis that had been receiving and completed a six-week course of IV antibiotics for MSSA. EKG in the ER also showed atrial fibrillation with RVR and patient had a brain CT which showed chronic ischemic changes with no acute bleed or mass effect. Assessment: Sepsis, present on admission, most likely secondary to nonhealing diabetic right foot ulcer with osteomyelitis of the fifth metatarsal Lactic acidosis secondary to above Hypotension, secondary to above Acute kidney injury, possibly secondary to hypotension Diabetes mellitus, type II, uncontrolled insulin-dependent with hyperglycemia an d poorly controlled diabetes and noncompliance with diet and medications History of hypertension nstemi possibly secondary to sepsis Atrial fibrillation with RVR with history of chronic A. fib Diarrhea with dehydration History of congestive heart failure with unknown EF history of TAVR No code According to nursing documentation, patient became more unresponsive and hypotensive and patient ultimately with time of 2045 on 03/27/2023 with family present. The patient was made no code. Again patient was not seen and evaluated by admitting physician on this admission and was seen and evaluated by pulmonary kidney puller along with infectious disease and ER physician. Please refer to other consultations documentation for further HPI. The impression and plan of care has been dictated as a scribe by Cassidy Chavis, Nurse Practitioner as directed. Dr. Ramiro MD I have performed a history and examination and MDM of this patient, discussed the same with the dictator, and agree with the dictator's assessment and plan as written ,documented as a scribe. Based on total visit time, I have performed more than 50% of the visit. Past Medical History Past Medical History: Diabetes Mellitus, Hypertension Additional Past Medical History / Comment(s): Neuropathy, macular degeneration of the eyes, Patient says they had diverticulitis but that was resolved. History of Any Multi-Drug Resistant Organisms: None Reported Past Surgical History: Cardiac Valve Replacement Additional Past Surgical History / Comment(s): Cataract surgery Past Anesthesia/Blood Transfusion Reactions: No Reported Reaction Past Psychological History: No Psychological Hx Reported Smoking Status: Former smoker Past Alcohol Use History: None Reported Past Drug Use History: None Reported - Past Family History Father Family Medical History: Hyperlipidemia Medications and Allergies Home Medications Medication Instructions Recorded Confirmed Type Apixaban [Eliquis] 5 mg PO Q12H 12/18/22 03/27/23 History Atorvastatin [Lipitor] 20 mg PO HS 12/18/22 03/27/23 History Finasteride [Proscar] 5 mg PO DAILY 12/18/22 03/27/23 History Multivitamins, Thera [Multivitamin 1 tab PO DAILY 12/18/22 03/27/23 History (formulary)] Tamsulosin [Flomax] 0.8 mg PO HS 12/18/22 03/27/23 History Vit C/E/Zn/Coppr/Lutein/Zeaxan 1 cap PO DAILY 12/18/22 03/27/23 History [Preservision Areds 2 Softgel] carvediloL [Coreg] 6.25 mg PO BID 12/18/22 03/27/23 History metFORMIN HCL 1,000 mg PO BID 12/18/22 03/27/23 History Furosemide [Lasix] 60 mg PO DAILY tab 12/25/22 03/27/23 Rx Collagenase [Santyl Ointment] 1 applic TOPICAL DAILY 03/27/23 03/27/23 History Dakin's Solution 1 applic TOPICAL DAILY 03/27/23 03/27/23 History Losartan [Cozaar] 25 mg PO DAILY 03/27/23 03/27/23 History Spironolactone 25 mg PO DAILY 03/27/23 03/27/23 History Allergies Allergy/AdvReac Type Severity Reaction Status Date / Time No Known Allergies Allergy Verified 03/27/23 13:58 Physical Exam Vitals: Vital Signs Temp Pulse Resp BP Pulse Ox 03/27/23 20:35 38 L 5 L 55/41 86 L 03/27/23 20:30 74 21 104/92 91 L 03/27/23 20:25 93 26 H 104/92 93 L 03/27/23 20:20 103 H 31 H 104/92 94 L 03/27/23 20:15 102 H 35 H 116/96 95 03/27/23 20:10 106 H 33 H 116/96 95 03/27/23 20:05 121 H 37 H 116/96 94 L 03/27/23 20:00 113 H 39 H 92/65 95 03/27/23 19:40 112 H 36 H 96/57 96 03/27/23 19:00 99.5 F 104 H 39 H 98/54 95 03/27/23 18:40 86 49 H 101/47 94 L 03/27/23 18:20 106 H 39 H 106/24 94 L 03/27/23 18:00 98 47 H 97/53 97 03/27/23 17:40 96 45 H 81/50 100 03/27/23 17:20 91 48 H 115/51 100 03/27/23 17:00 106 H 42 H 72/36 99 03/27/23 16:40 100 33 H 72/46 100 03/27/23 16:20 90 34 H 95 03/27/23 16:00 102 H 33 H 109/46 89 L 03/27/23 15:40 87 44 H 76/53 03/27/23 15:20 105 H 49 H 94/60 03/27/23 15:00 120 H 37 H 90 L 03/27/23 14:40 111/54 03/27/23 14:20 100 40 H 116/70 03/27/23 14:00 116 H 115/72 95 03/27/23 13:45 98 107/59 94 L 03/27/23 13:30 104/57 03/27/23 13:15 107 H 98/54 98 03/27/23 13:04 112 H 40 H 98 03/27/23 12:58 100.6 F H 109 H 22 98/54 97 Intake and Output 03/27/23 03/28/23 03/28/23 22:59 06:59 14:59 Intake Total 47.833 Balance 47.833 Intake: Intake, IV Titration 47.833 Amount Heparin Sod,Pork in 0.45% 47.833 NaCl 25,000 unit In 0.45 % NaCl 1 250ml.bag @ 10. 021 UNITS/KG/HR 10 mls/hr IV .Q24H [facility] Rx#: [id number] Results CBC & Chem 7: 03/27/23 13:11 03/27/23 13:11 Labs: Abnormal Lab Results - Last 24 Hours (Table) 03/27/23 03/27/23 03/27/23 Range/Units 13:11 13:11 13:11 RBC 3.79 L (4.30-5.90) m/uL Hgb 10.2 L (13.0-17.5) gm/dL Hct 30.3 L (39.0-53.0) % RDW 15.6 H (11.5-15.5) % Plt Count 125 L (150-450) k/uL Neutrophils # 8.6 H (1.3-7.7) k/uL Lymphocytes # 0.2 L (1.0-4.8) k/uL PT 17.4 H (10.0-12.5) sec INR 1.7 H (<1.2) Sodium (137-145) mmol/L Chloride (98-107) mmol/L Carbon Dioxide (22-30) mmol/L BUN (9-20) mg/dL Creatinine (0.66-1.25) mg/dL Glucose (74-99) mg/dL Plasma Lactic Acid Geraldo (0.7-2.0) mmol/L Ionized Calcium Yonatan (4.5-5.3) mg/dL Magnesium (1.6-2.3) mg/dL AST (17-59) U/L Troponin I (0.000-0.034) ng/mL Albumin (3.5-5.0) g/dL Procalcitonin (0.02-0.09) ng/mL Urine Protein Trace H (Negative) Urine Bacteria Rare H (None) /hpf Hyaline Casts 14 H (0-2) /lpf Urine Mucus Rare H (None) /hpf 03/27/23 03/27/23 03/27/23 Range/Units 13:11 13:11 13:11 RBC (4.30-5.90) m/uL Hgb (13.0-17.5) gm/dL Hct (39.0-53.0) % RDW (11.5-15.5) % Plt Count (150-450) k/uL Neutrophils # (1.3-7.7) k/uL Lymphocytes # (1.0-4.8) k/uL PT (10.0-12.5) sec INR (<1.2) Sodium 129 L (137-145) mmol/L Chloride 92 L (98-107) mmol/L Carbon Dioxide 20 L (22-30) mmol/L BUN 58 H (9-20) mg/dL Creatinine 2.03 H (0.66-1.25) mg/dL Glucose 343 H (74-99) mg/dL Plasma Lactic Acid Geraldo 4.3 H* (0.7-2.0) mmol/L Ionized Calcium Yonatan (4.5-5.3) mg/dL Magnesium 1.3 L (1.6-2.3) mg/dL AST 60 H (17-59) U/L Troponin I 10.200 H* (0.000-0.034) ng/mL Albumin 3.3 L (3.5-5.0) g/dL Procalcitonin (0.02-0.09) ng/mL Urine Protein (Negative) Urine Bacteria (None) /hpf Hyaline Casts (0-2) /lpf Urine Mucus (None) /hpf 03/27/23 03/27/23 03/27/23 Range/Units 14:09 16:13 16:20 RBC (4.30-5.90) m/uL Hgb (13.0-17.5) gm/dL Hct (39.0-53.0) % RDW (11.5-15.5) % Plt Count (150-450) k/uL Neutrophils # (1.3-7.7) k/uL Lymphocytes # (1.0-4.8) k/uL PT (10.0-12.5) sec INR (<1.2) Sodium (137-145) mmol/L Chloride (98-107) mmol/L Carbon Dioxide (22-30) mmol/L BUN (9-20) mg/dL Creatinine (0.66-1.25) mg/dL Glucose (74-99) mg/dL Plasma Lactic Acid Geraldo 5.8 H* (0.7-2.0) mmol/L Ionized Calcium Yonatan 4.4 L (4.5-5.3) mg/dL Magnesium (1.6-2.3) mg/dL AST (17-59) U/L Troponin I 18.300 H* (0.000-0.034) ng/mL Albumin (3.5-5.0) g/dL Procalcitonin (0.02-0.09) ng/mL Urine Protein (Negative) Urine Bacteria (None) /hpf Hyaline Casts (0-2) /lpf Urine Mucus (None) /hpf 03/27/23 03/27/23 03/27/23 Range/Units 19:21 19:21 19:21 RBC (4.30-5.90) m/uL Hgb (13.0-17.5) gm/dL Hct (39.0-53.0) % RDW (11.5-15.5) % Plt Count (150-450) k/uL Neutrophils # (1.3-7.7) k/uL Lymphocytes # (1.0-4.8) k/uL PT (10.0-12.5) sec INR (<1.2) Sodium (137-145) mmol/L Chloride (98-107) mmol/L Carbon Dioxide (22-30) mmol/L BUN (9-20) mg/dL Creatinine (0.66-1.25) mg/dL Glucose (74-99) mg/dL Plasma Lactic Acid Geraldo 6.0 H* (0.7-2.0) mmol/L Ionized Calcium Yonatan (4.5-5.3) mg/dL Magnesium (1.6-2.3) mg/dL AST (17-59) U/L Troponin I 24.200 H* (0.000-0.034) ng/mL Albumin (3.5-5.0) g/dL Procalcitonin 2.25 H (0.02-0.09) ng/mL Urine Protein (Negative) Urine Bacteria (None) /hpf Hyaline Casts (0-2) /lpf Urine Mucus (None) /hpf Microbiology - Last 24 Hours (Table) 03/27/23 13:36 Blood Culture Gram Stain - Preliminary Blood 03/27/23 13:25 Blood Culture Gram Stain - Preliminary Blood
--- NOTE | 2023-03-28 15:20 | P.DS ---
Providers Date of admission: 03/27/23 15:02 Expected date of discharge: 03/28/23 Attending physician: Mehdi Montgomery MD Consults: 03/27/23 15:02 Consult Physician Routine Consulting Provider: Jaleesa Thayer Consult Reason/Comments: sirs Do you want consulting provider notified?: Yes Consult Physician Routine Consulting Provider: Aly Bonner Consult Reason/Comments: elevated tropnin Do you want consulting provider notified?: Yes Primary care physician: Gilbert Reyna [facility] Course: Preliminary cause of Sepsis, likely secondary to nonhealing diabetic ulcer with osteomyelitis Final diagnosis Sepsis, present on admission, most likely secondary to nonhealing diabetic right foot ulcer with osteomyelitis of the fifth metatarsal Lactic acidosis secondary to above Hypotension, secondary to above Acute kidney injury, possibly secondary to hypotension Diabetes mellitus, type II, uncontrolled insulin-dependent with hyperglycemia and poorly controlled diabetes and noncompliance with diet and medications History of hypertension nstemi possibly secondary to sepsis Atrial fibrillation with RVR with history of chronic A. fib Diarrhea with dehydration History of congestive heart failure with unknown EF history of TAVR No code Discharge disposition Patient . According to nursing documentation, time of was 2045 on 03/27/2023 with family present. Total time taken is greater than 35 minutes. Patient was evaluated in the ER by attending Dr. Degroot as well as pulmonary toddler lead teacher while in the ER and was not evaluated by attending physician Patient was admitted from the ER for increased weakness and altered mental status and EMS was called by family. Patient had uncontrolled blood sugars and elevated blood sugars on admission and was also found to have a chronic wound was right foot. Family was contacted and patient CODE STATUS addressed per ER documentation wanted full code. Pulmonary toddler lead teacher was consulted as patient is severely hypotensive and more unresponsive and clinically declining. Antibiotics with infectious disease and pulmonary toddler lead teacher on consult. Labs reviewed and patient had lactic acid of 4.3 and troponins were positive with initial troponin being 10.2 and subsequent troponins came back as 18 and 24 with cardiology placed on consult and placed on IV heparin and started developing hypotension was given multiple boluses and continued to be hypotensive. Procalcitonin was 2.25. Patient does follow with Dr. Reyna in the outpatient setting with a past medical history of atrial fibrillation, coronary artery disease, heart failure, diabetes mellitus, hypertension, musculoskeletal disorder, also arthritis, prostate disorder, poorly controlled diabetes, osteomyelitis of the right foot along with vascular disorder. Patient was known to have a cardiac valve replacement with TAVR. Patient was admitted to the hospital with acute NSTEMI dehydration, Acute kidney injury, CHF exacerbation with a chronic nonhealing diabetic ulcer with osteomyelitis that had been receiving and completed a six-week course of IV antibiotics for MSSA. EKG in the ER also showed atrial fibrillation with RVR and patient had a brain CT which showed chronic ischemic changes with no acute bleed or mass effect. According to nursing documentation, patient became more unresponsive and hypotensive and patient ultimately with time of 2045 on 03/27/2023 with family present. The patient was made no code. Again patient was not seen and evaluated by admitting physician on this admission and was seen and fransisco luated by pulmonary toddler lead teacher along with infectious disease and ER physician. Please refer to other consultations documentation for further HPI. The impression and plan of care has been dictated as a scribe by Cassidy Chavis, Nurse Practitioner as directed. Dr. Ramiro MD I have performed a history and examination and MDM of this patient, discussed the same with the dictator, and agree with the dictator's assessment and plan as written ,documented as a scribe. Based on total visit time, I have performed more than 50% of the visit. Patient Condition at Discharge: Serious Plan - Discharge Summary New Discharge Prescriptions: No Action Multivitamins, Thera [Multivitamin (formulary)] 1 tab PO DAILY metFORMIN HCL 1,000 mg PO BID Apixaban [Eliquis] 5 mg PO Q12H carvediloL [Coreg] 6.25 mg PO BID Furosemide [Lasix] 60 mg PO DAILY tab Dakin's Solution 1 applic TOPICAL DAILY Vit C/E/Zn/Coppr/Lutein/Zeaxan [Preservision Areds 2 Softgel] 1 cap PO DAILY Tamsulosin [Flomax] 0.8 mg PO HS Finasteride [Proscar] 5 mg PO DAILY Atorvastatin [Lipitor] 20 mg PO HS Collagenase [Santyl Ointment] 1 applic TOPICAL DAILY Losartan [Cozaar] 25 mg PO DAILY Spironolactone 25 mg PO DAILY Discharge Medication List Apixaban [Eliquis] 5 mg PO Q12H 12/18/22 [History] Atorvastatin [Lipitor] 20 mg PO HS 12/18/22 [History] Finasteride [Proscar] 5 mg PO DAILY 12/18/22 [History] Multivitamins, Thera [Multivitamin (formulary)] 1 tab PO DAILY 12/18/22 [History] Tamsulosin [Flomax] 0.8 mg PO HS 12/18/22 [History] Vit C/E/Zn/Coppr/Lutein/Zeaxan [Preservision Areds 2 Softgel] 1 cap PO DAILY 12/18/22 [History] carvediloL [Coreg] 6.25 mg PO BID 12/18/22 [History] metFORMIN HCL 1,000 mg PO BID 12/18/22 [History] Furosemide [Lasix] 60 mg PO DAILY tab 12/25/22 [Rx] Collagenase [Santyl Ointment] 1 applic TOPICAL DAILY 03/27/23 [History] Dakin's Solution 1 applic TOPICAL DAILY 03/27/23 [History] Losartan [Cozaar] 25 mg PO DAILY 03/27/23 [History] Spironolactone 25 mg PO DAILY 03/27/23 [History] Follow up Appointment(s)/Referral(s): Jesus Shah MD [STAFF PHYSICIAN] - 1-2 days Discharge Disposition: - Preliminary Cause of Preliminary Cause of : Sepsis secondary to right foot nonhealing diabetic ulcer with osteomyelitis
--- NOTE | 2023-04-01 16:49 | CDI ---
Documentation Clarification Form Date: 04/01/2023 From: Kenia Finley Admit Date: 03/27/2023 03:02:00 PM Patient Name: Coleman Gonzalez Visit Number: [id number] Discharge Date: 03/27/2023 11:10:00 PM ATTENTION: The Clinical Documentation Specialists (CDI) and [facility] Coding Staff appreciate your assistance in clarifying documentation. Please respond to the clarification below the line at the bottom and electronically sign. The CDI & [facility] Coding staff will review the response and follow-up if needed. Please note: Queries are made part of the Legal Health Record. If you have any questions, please contact the author of this message via ITS. Dr. Josesito Rubio Your patient has the documented symptom of Altered Mental Status. Additional clarification regarding the etiology/cause of this symptom is requested. History/Risk Factors: 87yo presented with altered mental status, hypotension and acute WI. Pt was diagnosed with sepsis 2nd to chronic nonhealing diabetic ulcer on the R foot w/ secondary osteomyelitis of the 5th metatarsal. Clinical Indicators: Per ER note, pt presented with weakness and altered mental status. Per the family, he was slightly altered the night prior to arrival. ER noted pt was A&Ox1, which the family reported is not his baseline. Pt was made comfort measures and on 03/28. Labs 03/27: Na 129, Cl 92, Anion Gap 20, BUN 58, Creat 2.03, gluc 343, LA 4.3- >6.0, Mag 1.3, AST 60, trop 10.200->24.200, procalcitonin 2.25 CT brain 03/27: Chronic ischemic changes, mod to marked age-appropriate atrophy Treatment: Tylenol IV, IV fluid bolus, MgSO4 IV, Zosyn IV Please clarify the etiology of the symptom of Altered Mental Status: [ ] Metabolic encephalopathy d/t metabolic derangement and sepsis [ x] Other encephalopathy (please specify type Toxic due to sepsis [ ] Other condition (please specify) [ ] Unable to determine (Template Last Revised: May 2020) MTDD
--- NOTE | 2023-04-01 17:07 | CDI ---
Documentation Clarification Form Date: 04/01/2023 From: Kenia Finley Admit Date: 03/27/2023 03:02:00 PM Patient Name: Coleman Gonzalez Visit Number: [id number] Discharge Date: 03/27/2023 11:10:00 PM ATTENTION: The Clinical Documentation Specialists (CDI) and [facility] Coding Staff appreciate your assistance in clarifying documentation. Please respond to the clarification below the line at the bottom and electronically sign. The CDI & [facility] Coding staff will review the response and follow-up if needed. Please note: Queries are made part of the Legal Health Record. If you have any questions, please contact the author of this message via ITS. Dr. Josesito Rubio Further clarification is requested regarding the conflicting documentation between the RN respiratory assessment on 03/27 and the pulmonary consult on 03/27 History/Risk Factors: 87yo presented with altered mental status, hypotension and acute PA. Pt was diagnosed with sepsis 2nd to chronic nonhealing diabetic ulcer on the R foot w/ secondary osteomyelitis of the 5th metatarsal. Pt was made comfort care by the family and on 03/28. Clinical Indicators: Per RN resp assessment on 03/27, pt had labored breathing with sternal retractions and accessory muscle use. Pulm consult noted that the pts oxygenation is stable and the patient is currently on room air oxygen Vital Signs 03/27: @ 1600 pulse 102, RR 33, SpO2 89%, @1820 pulse 106, RR 39, SpO2 94%, @ 2035 pulse 38, RR 5, SpO2 86%, BP 55/41 CXR 03/27: Hypoventilatory changes, some patchy bibasilar densities likely represent atelectasis Treatment: Pt transitioned to comfort measures and . Please clarify the conflicting documentation: [ x ] Acute Respiratory Distress [ ] Acute Respiratory Failure [ ] Other, please specify [ ] Unable to determine (Template Last Revised: May 2020) MTDD
== END 2023-03-27 23:10 | disposition expired | DRG 871 ==
LOC: EC 12:57 → 3SCARD 15:02
PROVIDERS: ADMIT Internal Medicine; ATTEND Internal Medicine
DX: A41.89 Other specified sepsis (principal); G92.8 Other toxic encephalopathy; I21.4 Non-ST elevation (NSTEMI) myocardial infarction; E87.20 Acidosis, unspecified; E87.1 Hypo-osmolality and hyponatremia; M86.8X7 Other osteomyelitis, ankle and foot; N17.9 Acute kidney failure, unspecified; E11.42 Type 2 diabetes mellitus with diabetic polyneuropathy; E11.621 Type 2 diabetes mellitus with foot ulcer; E11.51 Type 2 diabetes mellitus with diabetic peripheral angiopathy without gangrene; E11.622 Type 2 diabetes mellitus with other skin ulcer; E11.69 Type 2 diabetes mellitus with other specified complication; E78.5 Hyperlipidemia, unspecified; E86.0 Dehydration; I11.0 Hypertensive heart disease with heart failure; R06.03 Acute respiratory distress; Z51.5 Encounter for palliative care; Z66 Do not resuscitate; I50.9 Heart failure, unspecified; Z95.2 Presence of prosthetic heart valve; Z11.52 Encounter for screening for COVID-19; L97.519 Non-pressure chronic ulcer of other part of right foot with unspecified severity; N40.0 Benign prostatic hyperplasia without lower urinary tract symptoms; Z79.01 Long term (current) use of anticoagulants; Z79.84 Long term (current) use of oral hypoglycemic drugs; Z79.899 Other long term (current) drug therapy; Z87.891 Personal history of nicotine dependence; Z98.49 Cataract extraction status, unspecified eye
CPT/HCPCS: 36415; 70450; 71045; 80053; 81001; 82330; 83605; 83735; 84145; 84484; 85025; 85610; 85730; 87040; 87636; 93005; 96365; 96366; 96367; 96368; 96375; 99285